=== PATIENT | female | born 1990 | race Caucasian/White ===

== ENCOUNTER → 2017-12-27 | Outpatient (CLI) | payer BC | LOC: M WUC 18:21 | DX: M79.672 Pain in left foot (principal) | CPT/HCPCS: 73630 ==

== ENCOUNTER → 2023-07-18 | Outpatient (CLI) | payer BC | LOC: M SOG 07:54 | PROVIDERS: ATTEND Physician Assistant | DX: M79.645 Pain in left finger(s) (principal) ==

== ENCOUNTER 2023-07-24 09:14 | Day surgery (SDC) | payer BC ==
[~2023-07-24] VITALS: Ht 165.1 cm; Wt 104.8 kg
[~2023-07-24 09:14] MED LIST: FAMO20TA PO; MELO15TA28 PO; PARO10TA3 PO
[2023-07-24] MEDS ORDERED: LR 1,000 ML IV SCH (09:30)
[2023-07-24] MEDS ORDERED: LIDOCAINE 2% 100MG/5ML SDV (FOR ANES.) As Ordered ONE (09:38)
[2023-07-24] MEDS ORDERED: ONDANSETRON 4MG 2ML VIAL As Ordered ONE (09:38)
[2023-07-24] MEDS ORDERED: propofoL 200 MG/20 ML VIAL As Ordered ONE (09:38)
[2023-07-24] MEDS ORDERED: KETOROLAC 60MG 2ML VIAL As Ordered ONE (09:38)
[2023-07-24] MEDS ORDERED: MIDAZOLAM INJ 2MG/2ML VIAL As Ordered ONE (09:39)
[2023-07-24] MEDS ORDERED: fentaNYL 100 MCG/2 ML INJECTION As Ordered ONE (09:39)
[2023-07-24] MEDS ORDERED: BACITRACIN OINTMENT 30GM TUBE As Ordered ONE (10:53)
[2023-07-24] MEDS ORDERED: dexmedeTOMIDine (4MCG/ML)200MCG/50ML BTL (PRECEDEX) As Ordered ONE (11:03)
[2023-07-24] MEDS: ceFAZolin SOD 2 GM in IV 1 EA IV ONE (11:25)
[2023-07-24] MEDS ORDERED: ACETAMINOPHEN 1000MG 100ML IV BAG As Ordered ONE (11:38)
[2023-07-24] MEDS ORDERED: OXYC-1 PO (12:15)
[2023-07-24] MEDS ORDERED: PERCOCET PO (12:29)
[2023-07-24 12:37] VITALS: BP 115/68; TEMP 96.9; O2SAT 97
== END 2023-07-24 12:40 | disposition home or self-care (01) ==
LOC: M SDC 09:14
PROVIDERS: ATTEND Orthopaedic Surgery Hand Surgery
DX: D18.01 Hemangioma of skin and subcutaneous tissue (principal); Z88.1 Allergy status to other antibiotic agents; Z79.899 Other long term (current) drug therapy
CPT/HCPCS: 11424; 81025; 88305; J0131; J0665; J0690; J1100; J1885; J2250; J2405; J3010